=== PATIENT | male | born 1995 | race Caucasian/White ===

== ENCOUNTER 2017-03-30 12:43 | Emergency (ER) | payer BC, SELFPAY ==
[2017-03-30 13:38] VITALS: BP 118/59
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
--- NOTE | 2017-03-31 08:32 | ER ---
DATE SEEN: 03/30/2017 The patient was seen at 1300 hours. /[id number] RC/DEMARIO
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
== END 2017-03-30 13:25 | disposition home or self-care (01) ==
LOC: FB.ED 12:43
DX: S02.2XXA Fracture of nasal bones, initial encounter for closed fracture (principal); X58.XXXA Exposure to other specified factors, initial encounter; Y92.009 Unspecified place in unspecified non-institutional (private) residence as the place of occurrence of the external cause
CPT/HCPCS: 70160; 99283